=== PATIENT | female | born 1965 | race Caucasian/White ===

== ENCOUNTER 2023-03-16 07:32 | Day surgery (SDC) | payer BC, MEDICAID, SELFPAY ==
[2023-03-16 08:19] VITALS: BP 157/91; PULSE 68; RESP 16; TEMP 36.3; O2SAT 97
[2023-03-16 08:27] LABS: Glucometer 100 mg/dL (74-106)
[2023-03-16 08:51] VITALS: RESP 20
[2023-03-16 08:55] VITALS: BP 161/89; PULSE 74; O2SAT 94
[2023-03-16] MEDS: BUPIVACAINE HCL 0.25% PF 25 MG/10 ML VIAL 4 ML INJ (08:56)
[2023-03-16 08:57] VITALS: BP 155/97; PULSE 78; O2SAT 96
--- NOTE | 2023-03-16 09:45 | W.PM.PROCNOT ---
Date of procedure: 03/16/23 Pre-op diagnosis: neuritis of the right lateral cutaneous branch middle cluneal nerves Post-op diagnosis: same Procedure: Right Lateral cutaneous branch Iliohypogastric nerve injection, diagnostic Performed under fluoroscopic guidance Immediate complications none Anesthesia: none Solution used for injection: In each syringe, 2 milliliters 0.25% Marcaine 2.5 mL is used for injection for each side Time out process compliant After informed consent obtained patient was brought to the procedure room placed in the prone position skin overlying the area was prepped and draped in a sterile fashion using betadine. 25 gauge spinal needle Insert over each of the target areas identified in fluoroscopy corresponding needles were advanced Under fluoroscopic guidance until the target/targets encountered , no indication of intravascular or Intraneuronal needle tip placement. Solution injected. [place] removed post procedurally. patient transferred to recovery room in stable condition to be discharged home after meeting criteria Anesthesia: Local Surgeon: Dony Montelongo
== END 2023-03-16 09:02 | disposition home or self-care (01) ==
PROVIDERS: PCP Family Medicine; Visit Provider Anesthesiology Pain Medicine
DX: G57.81 Other specified mononeuropathies of right lower limb (principal); Z79.84 Long term (current) use of oral hypoglycemic drugs
CPT/HCPCS: 36415; 36416; 64425; 77002; 82948

== ENCOUNTER 2023-04-02 13:08 | Outpatient (OUT) | payer BC, MEDICAID, SELFPAY ==
--- NOTE | 2023-04-02 13:39 | PM.CN ---
Consult Note: HPI Data of Consult Patient: known to practice within the last 3 years Consult date: 04/02/23 Requesting Physician: Ivy Benjamin NP Primary Care Provider: Cali Garcia MD Consult Narrative Narrative: Marimar is here for f/u to right LCIH nerve block done 03/16/23. She received 90% relief of pain and increased fx for several hours after procedure. She would like to proceed with RFA of right LCIH. Procedure discussed in detail and questions answered. No radiculopathy. No new sensorimotor sx or bowel or bladder issues. No foot drop. No adverse medication SE. cc:: CC: Ivy Benjamin NP Review of Systems ROS Status of ROS 10 or more systems reviewed and unremarkable except as noted in history and below Musculoskeletal Reports: back pain PFSH PFSH Medical History Surgical History Meds Home Medications and Allergies Home Medications Medication Instructions Recorded Confirmed Type alprazolam 1 mg tablet 1 mg PO TID PRN anxiety 03/05/23 03/16/23 History baclofen 10 mg tablet 10 mg PO Q12H 03/05/23 03/16/23 History celecoxib 200 mg capsule 200 mg PO BID 03/05/23 03/16/23 History dextroamphetamine-amphetamine 30 30 mg PO DAILY 03/05/23 03/16/23 History mg tablet (Adderall) metformin 500 mg tablet,extended 500 mg PO .EVENING 03/05/23 03/16/23 History release 24 hr trazodone 100 mg tablet 100 mg PO .HS 03/05/23 03/16/23 History Allergies Allergy/AdvReac Type Severity Reaction Status Date / Time Penicillins Allergy Mild Verified 03/16/23 08:13 Exam Constitutional Documenting provider has reviewed patient's vital signs: yes Common normals: no apparent distress, average body habitus, oriented x3, no limitations, healthy appearing, alert and well nourished General appearance: cooperative, comfortable and well developed Orientation/consciousness: Yes awake, Yes oriented to person, Yes oriented to place and Yes oriented to time HENIA Common normals: normocephalic and moist oral mucous membranes Back & Pelvis Lumbar spine/lower back: normal to inspection, lumbar ROM normal, pain with ROM and straight leg raise negative bilaterally Other: positive gaenslens, thigh thrust, adriana right negative facet load pain muscle strength 5/5 bilat LE with intact sensation. Assessment and Plan Assessment and Plan (1) Sacroiliac joint pain: (2) Muscle spasm: Plan schedule for RFA thermal right LCIH under fluoroscopy refill baclofen
== END 2023-04-02 13:09 | disposition home or self-care (01) ==
LOC: PM 13:08
PROVIDERS: PCP Family Medicine; Visit Provider Nurse Practitioner
DX: M62.838 Other muscle spasm (principal); M53.3 Sacrococcygeal disorders, not elsewhere classified
CPT/HCPCS: G0463

== ENCOUNTER 2023-05-11 08:56 | Day surgery (SDC) | payer BC, MEDICAID, SELFPAY ==
[2023-05-11 09:20] VITALS: BP 108/70; PULSE 77; RESP 16; TEMP 36.6; O2SAT 97
[2023-05-11 09:24] LABS: Glucometer 103 mg/dL (74-106)
[2023-05-11] MEDS: 0.9 % SODIUM CHLORIDE 500 ML 50 ML IV (09:34)
[2023-05-11] MEDS: BUPIVACAINE HCL 0.25% PF 25 MG/10 ML VIAL 5 ML INJ (10:05)
[2023-05-11] MEDS: LIDOCAINE HCL 2% 400 MG/20 ML MDV 10 ML INJ (10:05)
[2023-05-11] MEDS: METHYLPREDNISOLONE ACETATE 40 MG/ML VIAL INJ (10:05)
[2023-05-11 10:12] VITALS: BP 110/62; PULSE 72; RESP 16; TEMP 36.6; O2SAT 96
[2023-05-11 10:13] VITALS: BP 118/58; PULSE 75; RESP 16; TEMP 36.6; O2SAT 95
--- NOTE | 2023-05-11 11:01 | W.PM.PROCNOT ---
Date of procedure: 05/11/23 Pre-op diagnosis: Right lateral cutaneous iliohypogastric neuritis Post-op diagnosis: same as pre-op Procedure: Right Lateral cutaneous iliohypogastric nerve Radiofrequency ablation Under fluoroscopic guidance Rhizotomy was created using radio frequency ablation at 80?C for 90 seconds 1 to 2 lesions created at each site. Post lesioning injection of 2 mL each of 0.25% Marcaine and 2% lidocaine with Depo-Medrol 40mg. 0.5 to 1 mL injected at each site IV in place yes If Intravenous fluids: NS at KVO Anesthesia local 2% lidocaine for Anesthesia Other: MAC Timeout process compliant After informed consent obtained. Patient brought to the procedure room placed in the prone position skin overlying the area was prepped and draped in a sterile fashion using betadine. 25 gauge needle was used to create a skin wheal over each of the targeted areas utilizing 2% lidocaine. A rhizotomy needle with a 10 mm active tip was inserted over each of the anesthetized areas and directed towards four different areas in the distribution of the lateral cutaneous branches of the iliohypogastric nerve, accomplished under fluoroscopic guidance. After encountering the same we had positive sensory stimulation, negative motor stimulation was noted. lesions were then created. Post lesioning, steroid solution was injected needles removed. Patient was transferred to recovery room in stable condition to be discharged home after meeting criteria. Anesthesia: MAC Surgeon: Dony Montelongo Condition: stable
--- NOTE | 2023-05-11 13:05 | PC.NURSE ---
Upon discharge, patient released to daughter in car. Patient opened door, then slammed it and proceeded to walk back into hospital stating There i was released to my car, I'll be in the cafeteria . Patient's gait was stable.
== END 2023-05-11 11:37 | disposition home or self-care (01) ==
LOC: SURGOUT 08:57
PROVIDERS: PCP Family Medicine; Visit Provider Anesthesiology Pain Medicine
PROC: (CPT 1992; principal; 2023-05-11 09:50)
DX: G57.81 Other specified mononeuropathies of right lower limb (principal); Z79.84 Long term (current) use of oral hypoglycemic drugs
CPT/HCPCS: 36415; 64640; 77002; 82948; J1030; J2704

== ENCOUNTER 2023-05-19 09:59 | Outpatient (OUT) | payer BC, MEDICAID, SELFPAY ==
[2023-05-19 10:35] LABS: Basophils Absolute Auto 0.1 10^3/uL (0.0-0.1); Basophils Percent Auto 0.6 % (0.2-2.0); Eosinophils Absolute Auto 0.4 10^3/uL (0.0-0.7); Hematocrit 40.8 % (36.0-48.0); Hemoglobin 14.3 g/dL (12.0-16.0); Immature Granulocytes Abs Auto 0.03 10^3/uL (0.00-0.03); Immature Granulocytes Pct Auto 0.4 % (0.0-0.5); Lymphocytes Absolute Auto 2.7 10^3/uL (1.2-3.8); Mean Corpuscular Hemoglobin 30.8 pg (26.7-34.0); Mean Corpuscular Volume 87.9 fL (81.0-99.0); Monocytes Absolute Auto 0.4 10^3/uL (0.3-0.8); Monocytes Percent Auto 5.1 % (1.7-12.0); Neutrophils Absolute Auto 4.5 10^3/uL (1.4-6.5); Neutrophils Percent Auto 55.9 % (43.0-75.0); Platelet Count 264 10^3/uL (150-450); Red Blood Count 4.64 10^6/uL (4.20-5.40); Red Cell Distribution Width 12.9 % (11.0-15.0); White Blood Count 8.1 10^3/uL (4.0-11.0)
[2023-05-19 11:38] LABS: Estimated Average Glucose 126 mg/dL
[2023-05-19 12:11] LABS: Alanine Aminotransferase 31 U/L (14-59); Albumin Globulin Ratio 1.3; Albumin Level 4.4 g/dL (3.4-5.0); Alkaline Phosphatase 105 U/L (46-116); Anion Gap 16.9; Aspartate Amino Transferase 18 U/L (15-37); BUN Creatinine Ratio 18.3; Bilirubin Direct 0.1 mg/dL (0.0-0.2); Bilirubin Total 0.5 mg/dL (0.2-1.0); Carbon Dioxide 25.3 mmol/L (21.0-32.0); Chloride 103 mmol/L (98-107); Cholesterol 216 mg/dL (<=200); Estimated GFR (African America >60 (>=60); Estimated GFR (Non-African Ame >60 (>=60); Globulin 3.3 g/dL; Glucose 78 mg/dL (74-106); HDL Cholesterol 54 mg/dL (40-60); Potassium 4.2 mmol/L (3.5-5.1); Sodium 141 mmol/L (136-145); Thyroid Stimulating Hormone 2.626 uIU/mL (0.358-3.740); Total Protein 7.7 g/dL (6.4-8.2); Triglycerides 245 mg/dL (<=150)
== END 2023-05-19 10:00 | disposition home or self-care (01) ==
LOC: LAB 10:01
PROVIDERS: PCP Family Medicine; Visit Provider Family Medicine
DX: Z00.00 Encounter for general adult medical examination without abnormal findings (principal)
CPT/HCPCS: 36415; 80048; 80061; 80076; 83036; 84443; 85025

== ENCOUNTER 2023-06-03 13:54 | Outpatient (OUT) | payer BC, MEDICAID, SELFPAY ==
--- NOTE | 2023-06-03 14:13 | PM.CN ---
Consult Note: HPI Data of Consult Patient: known to practice within the last 3 years Requesting Physician: Ivy Benjamin NP Primary Care Provider: Cali Garcia MD Consult Narrative Reason for consult: right LCIH RFA f/u Narrative: Marimar wyatt pleasant 58 year old female presents for evaluation of chronic low back and right hip pain. Today rating pain 1/10, at its worst the pain is 10/10. Feels the most recent procedure provided 30% pain relief. Patient would like to discuss additional options cc:: CC: Ivy Benjamin NP Review of Systems ROS Status of ROS 10 or more systems reviewed and unremarkable except as noted in history and below Musculoskeletal Reports: back pain PFSH PFSH Medical History Surgical History Meds Home Medications and Allergies Home Medications Medication Instructions Recorded Confirmed Type alprazolam 1 mg tablet 1 mg PO TID PRN anxiety 03/05/23 03/16/23 History baclofen 10 mg tablet 10 mg PO Q12H 03/05/23 03/16/23 History celecoxib 200 mg capsule 200 mg PO BID 03/05/23 03/16/23 History dextroamphetamine-amphetamine 30 30 mg PO DAILY 03/05/23 03/16/23 History mg tablet (Adderall) metformin 500 mg tablet,extended 500 mg PO .EVENING 03/05/23 03/16/23 History release 24 hr trazodone 100 mg tablet 100 mg PO .HS 03/05/23 03/16/23 History Allergies Allergy/AdvReac Type Severity Reaction Status Date / Time Penicillins Allergy Mild Verified 03/16/23 08:13 Exam Constitutional Documenting provider has reviewed patient's vital signs: yes Common normals: no apparent distress, oriented x3, healthy appearing, alert and well nourished General appearance: cooperative HENMT Common normals: normocephalic, hearing grossly normal bilaterally and moist oral mucous membranes Head and scalp: normocephalic Eye Common normals: PERRL Pupil: PERRL Neck & C-Spine Common normals: full ROM General: normal visual inspection Chest Common normals: inspection of chest normal Respiratory Common normals: normal respiratory effort, no retractions and no use of accessory muscles Back & Pelvis Lumbar spine/lower back: ROM limited, pain with ROM and straight leg raise negative bilaterally Sacroiliac joints: SI joint(s) abnormal Other: facet loading on right side predominately axial low back pain without radiculopathy continue to have pain into buttocks and across LCIH nerve Back image (female): 1. 2. Extremity Common normals: normal to inspection and full ROM Neuro Common normals: oriented x3, CN's II-XII intact bilaterally, moves all extremities, no focal motor deficits, no sensory deficits noted and deep tendon reflexes 2+ bilaterally Sensorium/orientation: alert Motor exam: strength 5/5 throughout and no movement abnormalities noted Psych Common normals: mental status grossly normal, thought process normal, cooperative, affect normal, speech normal and activity/motor behavior normal Speech: normal speech Thought process: normal thought process Results Additional Findings Additional findings: I have checked an [place] report on this patient today and there are no aberrancies noted in the prescribing history.?? A drug screen was completed and reviewed within the last year, and if there has not been a drug screen completed we ordered one today to monitor higher risk, state monitored pain medication use. As part of providing excellent, safe, comprehensive care, the following was completed at our patient's visit: 1. A medication reconciliation and review to ensure accurate knowledge of current/active medications, including asking our patients to inform us about any [id number] medications or herbal remedies/nutritional supplements/alternative remedies. 2. A review to specifically ensure our patients have had annual screening for: elevated body mass index (BMI), tobacco use, screening for depression, and screening for unhealthy alcohol use. When screening is concerning, patients are provided with education and the specific recommendation to discuss the concerning health issue and treatment options with their primary care provider. Assessment and Plan Assessment and Plan (1) Lumbar spondylosis: Assessment and Plan: The patient has had over 3 months of moderate to severe right sided low back and buttock pain with functional impairment and inadequate response to conservative care including NSAIDS (unless there are contraindication such as concurrent blood thinners), multiple oral or topical pain medications, and home exercise program/physical therapy.? I have reviewed the imaging of the lumbar spine and no red flags were identified.? The imaging reveals radiographic findings consistent with lumbar spondylosis We discussed the risks and benefits of the procedure with the patient, and we are NOT planning on using sedation as outlined in the guidelines from Medicare unless there is a documented reason that sedation would be strongly recommended.?? ?The procedure will be completed with fluoroscopic guidance.? (2) Muscle spasm: (3) Diabetes: Plan right l4/5 l5/s1 mbbx2 under fluoroscopy working towards thermal RFA continue current medications f/u after injection
== END 2023-06-03 13:55 | disposition home or self-care (01) ==
LOC: PM 13:55
PROVIDERS: PCP Family Medicine; Visit Provider Nurse Practitioner
DX: M47.816 Spondylosis without myelopathy or radiculopathy, lumbar region (principal); M62.838 Other muscle spasm; E11.9 Type 2 diabetes mellitus without complications
CPT/HCPCS: G0463

== ENCOUNTER 2023-07-13 08:08 | Day surgery (SDC) | payer BC, MEDICAID, SELFPAY ==
[2023-07-13 08:47] VITALS: BP 127/77; PULSE 88; RESP 14; TEMP 36.3; O2SAT 95
[2023-07-13 08:54] LABS: Glucometer 189 mg/dL (74-106)
[2023-07-13 09:32] VITALS: BP 119/62; PULSE 76; RESP 18; O2SAT 97
[2023-07-13] MEDS: BUPIVACAINE HCL 0.25% PF 25 MG/10 ML VIAL 4 ML INJ (09:32)
[2023-07-13 09:36] VITALS: BP 131/67; PULSE 85; RESP 18; O2SAT 97
--- NOTE | 2023-07-13 09:44 | W.PM.PROCNOT ---
Date of procedure: 07/13/23 Pre-op diagnosis: Lumbar spondylosis Post-op diagnosis: same as pre-op Procedure: Right Lumbar 4/5, 5/sacral 1 medial branch block Under fluoroscopic guidance Solution injected: 2millilitersMarcaine 0.25% Anesthesia :none Immediate complications none Time out process compliant After informed consent obtained from the patient placed in the Prone proposition . area was prepped and draped in a sterile fashion using Cloraprep .25 gauge spinal needle inserted over each of the above mentioned target areas . [place] were directed towards the target under fluoroscopic guidance . after encountering each of the targets , no indication of intravascular intraneuronal or intrathecal needle tip placement. Then 0 .5 to 1 Milliliter was injected at each level. [place] removed postoperatively. patient transferred to recovery in stable condition to be discharged home after meeting criteria Anesthesia: Local Surgeon: Dony Montelongo Condition: stable
== END 2023-07-13 09:43 | disposition home or self-care (01) ==
LOC: SURGOUT 08:08
PROVIDERS: PCP Family Medicine; Visit Provider Anesthesiology Pain Medicine
DX: M47.816 Spondylosis without myelopathy or radiculopathy, lumbar region (principal); Z79.84 Long term (current) use of oral hypoglycemic drugs
CPT/HCPCS: 36415; 64493; 64494; 82948

== ENCOUNTER 2023-07-21 13:44 | Outpatient (OUT) | payer BC, MEDICAID, SELFPAY ==
--- NOTE | 2023-07-21 14:01 | P.CN_ITS ---
Consult Note: HPI Data of Consult Patient: known to practice within the last 3 years Requesting Physician: Ivy Benjamin NP Primary Care Provider: Cali Garcia MD Consult Narrative Reason for consult: f/u Narrative: Marimar Kendrick a pleasant 58 year old female presents for evaluation and management of right low back pain. Today rating pain 3-4/10 without radiculopathy. Pain is worse with activity, bending, twisting. Relieved with medicaiton and rest. [place] 22% with moderate to severe pain, pain with lifting heavy weights, pain that prevents her from sitting more than 1 hour, pain that impacts sleep. Patient had 100% pain relief and functional improvement immediately after right L4-5 L5-S1 MBB #1. cc:: CC: Ivy Benjamin NP Review of Systems ROS Status of ROS 10 or more systems reviewed and unremarkable except as noted in history and below Musculoskeletal Reports: back pain PFSH PFSH Medical History Anxiety ?F41.9 - Anxiety disorder, unspecified (ICD-10) CHF (congestive heart failure) ?I50.9 - Heart failure, unspecified (ICD-10) 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.9 - Congenital malformation of heart, unspecified (ICD-10) Ectopic ?O00.90 - Unspecified ectopic without intrauterine (ICD- 10) Hearing deficit ?H91.90 - Unspecified hearing loss, unspecified ear (ICD-10) Hypertension ?I10 - Essential (primary) hypertension (ICD-10) Loud snoring ?R06.83 - Snoring (ICD-10) Low back pain ?M54.50 - Low back pain, unspecified (ICD-10) Myocardial infarct ?I21.9 - Acute myocardial infarction, unspecified (ICD-10) Osteoarthritis ?M19.90 - Unspecified osteoarthritis, unspecified site (ICD-10) Sleep apnea ?G47.30 - Sleep apnea, unspecified (ICD-10) Smoker ?F17.200 - Nicotine dependence, unspecified, uncomplicated (ICD-10) Surgical History H/O carpal tunnel repair ?Z98.890 - Other specified postprocedural states (ICD-10) H/O foot surgery ?Z98.890 - Other specified postprocedural states (ICD-10) H/O wrist surgery ?Z98.890 - Other specified postprocedural states (ICD-10) H/O: hysterectomy ?Z90.710 - Acquired absence of both cervix and uterus (ICD-10) History of appendectomy ?Z90.49 - Acquired absence of other specified parts of digestive tract (ICD- 10) History of cholecystectomy ?Z90.49 - Acquired absence of other specified parts of digestive tract (ICD- 10) History of tonsillectomy and adenoidectomy ?Z90.89 - Acquired absence of other organs (ICD-10) Hx of breast reduction, elective ?Z98.890 - Other specified postprocedural states (ICD-10) S/P arthroscopic knee surgery ?Z98.890 - Other specified postprocedural states (ICD-10) S/P trigger finger release ?Z98.890 - Other specified postprocedural states (ICD-10) Meds Home Medications and Allergies Home Medications Medication Instructions Recorded Confirmed Type alprazolam 1 mg tablet 1 mg PO TID PRN anxiety 03/05/23 07/13/23 History baclofen 10 mg tablet 10 mg PO Q12H 03/05/23 07/13/23 History celecoxib 200 mg capsule 200 mg PO BID 03/05/23 07/13/23 History dextroamphetamine-amphetamine 30 30 mg PO DAILY 03/05/23 07/13/23 History mg tablet (Adderall) metformin 500 mg tablet,extended 500 mg PO .EVENING 03/05/23 07/13/23 History release 24 hr trazodone 100 mg tablet 100 mg PO .HS 03/05/23 07/13/23 History Allergies Allergy/AdvReac Type Severity Reaction Status Date / Time Penicillins Allergy Mild Verified 07/13/23 08:45 Exam Constitutional Documenting provider has reviewed patient's vital signs: yes Common normals: no apparent distress, oriented x3, healthy appearing, alert and well nourished General appearance: cooperative HENMT Common normals: normocephalic, hearing grossly normal bilaterally and moist oral mucous membranes Head and scalp: normocephalic Eye Common normals: PERRL Pupil: PERRL Neck & C-Spine Common normals: full ROM General: normal visual inspection Chest Common normals: inspection of chest normal Respiratory Common normals: normal respiratory effort, no retractions and no use of accessory muscles Back & Pelvis Lumbar spine/lower back: ROM limited, pain with ROM and straight leg raise negative bilaterally Other: facet loading on right side predominately axial low back pain without radiculopathy Extremity Common normals: normal to inspection and full ROM Neuro Common normals: oriented x3, CN's II-XII intact bilaterally, moves all extremities, no focal motor deficits, no sensory deficits noted and deep tendon reflexes 2+ bilaterally Sensorium/orientation: alert Motor exam: strength 5/5 throughout and no movement abnormalities noted Psych Common normals: mental status grossly normal, thought process normal, cooperative, affect normal, speech normal and activity/motor behavior normal Speech: normal speech Thought process: normal thought process Assessment and Plan Assessment and Plan (1) Lumbar spondylosis: Assessment and Plan: The patient has had over 3 months of moderate to severe right sided low back and buttock pain with functional impairment and inadequate response to conservative care including NSAIDS (unless there are contraindication such as concurrent blood thinners), multiple oral or topical pain medications, and home exercise program/physical therapy.? I have reviewed the imaging of the lumbar spine and no red flags were identified.? The imaging reveals radiographic findings consistent with lumbar spondylosis We discussed the risks and benefits of the procedure with the patient, and we are NOT planning on using sedation as outlined in the guidelines from Medicare unless there is a documented reason that sedation would be strongly recommended.?? The procedure will be completed with fluoroscopic guidance.? (2) Muscle spasm: (3) Chronic prescription benzodiazepine use: Plan proceed with right L4-5 L5-S1 MBB #2 with 10mg PO valium 30 mins prior to procedure due to anxiety. continue current medications f/u 1 week after MBB
== END 2023-07-21 13:45 | disposition home or self-care (01) ==
LOC: PM 13:45
PROVIDERS: PCP Family Medicine; Visit Provider Nurse Practitioner
DX: M47.816 Spondylosis without myelopathy or radiculopathy, lumbar region (principal); M62.838 Other muscle spasm; Z79.891 Long term (current) use of opiate analgesic
CPT/HCPCS: G0463

== ENCOUNTER 2023-08-10 06:26 | Day surgery (SDC) | payer BC, MEDICAID, SELFPAY ==
[2023-08-10 07:55] LABS: Glucometer 151 mg/dL (74-106)
[2023-08-10 08:00] VITALS: BP 142/80; PULSE 83; RESP 16; TEMP 36.5; O2SAT 98
[2023-08-10] MEDS: BUPIVACAINE HCL 0.25% PF 25 MG/10 ML VIAL 3 ML INJ (09:19)
[2023-08-10 09:20] VITALS: BP 150/62; PULSE 62; RESP 18; O2SAT 98
[2023-08-10 09:22] VITALS: BP 170/71; PULSE 65; RESP 18; O2SAT 98
--- NOTE | 2023-08-10 09:28 | P.ON_ITS ---
Date of procedure: 08/10/23 Pre-op diagnosis: Lumbar spondylosis Post-op diagnosis: same as pre-op Procedure: Right Lumbar 4/5, 5/sacral 1medial branch block Under fluoroscopic guidance Solution injected: 2millilitersMarcaine 0.25% Anesthesia :none Immediate complications none Time out process compliant After informed consent obtained from the patient placed in the Prone proposition . area was prepped and draped in a sterile fashion using Cloraprep .25 gauge spinal needle inserted over each of the above mentioned target areas . [place] were directed towards the target under fluoroscopic guidance . after encountering each of the targets , no indication of intravascular intraneuronal or intrathecal needle tip placement. Then 0 .5 to 1 Milliliter was injected at each level. [place] removed postoperatively. patient transferred to recovery in stable condition to be discharged home after meeting criteria Anesthesia: Local Surgeon: Dony Montelongo Condition: stable
== END 2023-08-10 09:30 | disposition home or self-care (01) ==
PROVIDERS: PCP Family Medicine; Visit Provider Anesthesiology Pain Medicine
DX: M47.816 Spondylosis without myelopathy or radiculopathy, lumbar region (principal); Z79.84 Long term (current) use of oral hypoglycemic drugs
CPT/HCPCS: 36415; 64493; 64494; 82948

== ENCOUNTER 2023-08-19 14:06 | Outpatient (OUT) | payer BC, MEDICAID, SELFPAY ==
--- NOTE | 2023-08-19 14:14 | P.CN_ITS ---
Consult Note: HPI Data of Consult Patient: known to practice within the last 3 years Requesting Physician: Ivy Benjamin NP Primary Care Provider: Cali Garcia MD Consult Narrative Reason for consult: f/u Narrative: Marimar Kendrick a pleasant 58 year old female presents for evaluation and management of right low back pain. Today rating pain 8-9/10 without radiculopathy. Pain is worse with activity, bending, twisting. Relieved with medication and rest. KYARA 28% with moderate to severe pain, pain with lifting heavy weights, pain that prevents her from sitting more than 1 hour, pain that impacts sleep. Patient had 100% pain relief and functional improvement immediately after right L4-5 L5-S1 MBB #2 cc:: CC: Ivy Benjamin NP Review of Systems ROS Status of ROS 10 or more systems reviewed and unremark able except as noted in history and below Musculoskeletal Reports: back pain PFSH PFSH Medical History Ectopic ?O00.90 - Unspecified ectopic without intrauterine (ICD- 10) Hearing deficit ?H91.90 - Unspecified hearing loss, unspecified ear (ICD-10) Low back pain ?M54.50 - Low back pain, unspecified (ICD-10) Osteoarthritis ?M19.90 - Unspecified osteoarthritis, unspecified site (ICD-10) Anxiety ?F41.9 - Anxiety disorder, unspecified (ICD-10) Loud snoring ?R06.83 - Snoring (ICD-10) Sleep apnea ?G47.30 - Sleep apnea, unspecified (ICD-10) Hypertension ?I10 - Essential (primary) hypertension (ICD-10) 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.9 - Congenital malformation of heart, unspecified (ICD-10) Smoker ?F17.200 - Nicotine dependence, unspecified, uncomplicated (ICD-10) CHF (congestive heart failure) ?I50.9 - Heart failure, unspecified (ICD-10) Myocardial infarct ?I21.9 - Acute myocardial infarction, unspecified (ICD-10) Surgical History S/P arthroscopic knee surgery ?Z98.890 - Other specified postprocedural states (ICD-10) Hx of breast reduction, elective ?Z98.890 - Other specified postprocedural states (ICD-10) S/P trigger finger release ?Z98.890 - Other specified postprocedural states (ICD-10) H/O wrist surgery ?Z98.890 - Other specified postprocedural states (ICD-10) H/O carpal tunnel repair ?Z98.890 - Other specified postprocedural states (ICD-10) H/O foot surgery ?Z98.890 - Other specified postprocedural states (ICD-10) History of cholecystectomy ?Z90.49 - Acquired absence of other specified parts of digestive tract (ICD- 10) H/O: hysterectomy ?Z90.710 - Acquired absence of both cervix and uterus (ICD-10) History of appendectomy ?Z90.49 - Acquired absence of other specified parts of digestive tract (ICD- 10) History of tonsillectomy and adenoidectomy ?Z90.89 - Acquired absence of other organs (ICD-10) Meds Home Medications and Allergies Home Medications Medication Instructions Recorded Confirmed Type alprazolam 1 mg tablet 1 mg PO TID PRN anxiety 03/05/23 08/10/23 History baclofen 10 mg tablet 10 mg PO Q12H 03/05/23 08/10/23 History celecoxib 200 mg capsule 200 mg PO BID 03/05/23 08/10/23 History dextroamphetamine-amphetamine 30 30 mg PO DAILY 03/05/23 08/10/23 History mg tablet (Adderall) metformin 500 mg tablet,extended 500 mg PO .EVENING 03/05/23 08/10/23 History release 24 hr trazodone 100 mg tablet 100 mg PO .HS 03/05/23 08/10/23 History diazepam 10 mg tablet (Valium) 10 mg PO BID 08/10/23 08/10/23 History Allergies Allergy/AdvReac Type Severity Reaction Status Date / Time Penicillins Allergy Mild Verified 07/13/23 08:45 Exam Constitutional Documenting provider has reviewed patient's vital signs: yes Common normals: no apparent distress, oriented x3, healthy appearing, alert and well nourished General appearance: cooperative HENAR Common normals: normocephalic, hearing grossly normal bilaterally and moist oral mucous membranes Head and scalp: normocephalic Eye Common normals: PERRL Pupil: PERRL Neck & C-Spine Common normals: full ROM General: normal visual inspection Chest Common normals: inspection of chest normal Respiratory Common normals: normal respiratory effort, no retractions and no use of accessory muscles Back & Pelvis Lumbar spine/lower back: ROM limited, pain with ROM and straight leg raise negative bilaterally Other: facet loading on right side predominately axial low back pain without radiculopathy Extremity Common normals: normal to inspection and full ROM Neuro Common normals: oriented x3, CN's II-XII intact bilaterally, moves all extremities, no focal motor deficits, no sensory deficits noted and deep tendon reflexes 2+ bilaterally Sensorium/orientation: alert Motor exam: strength 5/5 throughout and no movement abnormalities noted Psych Common normals: mental status grossly normal, thought process normal, cooperative, affect normal, speech normal and activity/motor behavior normal Speech: normal speech Thought process: normal thought process Assessment and Plan Assessment and Plan (1) Lumbar spondylosis: Assessment and Plan: The patient has had over 3 months of moderate to severe right sided low back and buttock pain with functional impairment and inadequate response to conservative care including NSAIDS (unless there are contraindication such as concurrent blood thinners), multiple oral or topical pain medications, and home exercise program/physical therapy.? I have reviewed the imaging of the lumbar spine and no red flags were id entified.? The imaging reveals radiographic findings consistent with lumbar spondylosis We discussed the risks and benefits of the procedure with the patient. The procedure will be completed with fluoroscopic guidance.? (2) Muscle spasm: (3) Chronic prescription benzodiazepine use: Plan proceed with right L4-5 L5-S1 RFA with IV sedation due to anxiety. continue current medications f/u 1 month after thermal RFA
== END 2023-08-19 14:07 | disposition home or self-care (01) ==
LOC: PM 14:07
PROVIDERS: PCP Family Medicine; Visit Provider Nurse Practitioner
DX: M47.816 Spondylosis without myelopathy or radiculopathy, lumbar region (principal); M62.838 Other muscle spasm; Z79.891 Long term (current) use of opiate analgesic
CPT/HCPCS: G0463

== ENCOUNTER 2023-09-14 10:27 | Day surgery (SDC) | payer BC, MEDICAID, SELFPAY ==
--- OUTSIDE RECORDS SUMMARY | 2023-09-14 10:33 | XMS_ITS | CCD ---
Author Name Unknown Address [address] [place] [address] Organization [facility] Care Team Providers Care Baggage Smasher Name Role Phone GISSELL, ABDULAZIM Unavailable Unavailable GISSELL, ABDULAZIM Unavailable Unavailable CALI MENDEZ Unavailable Unavailable SELF, REFERRED Unavailable Unavailable [place] Unavailable Unavailable GISSELL, ABDULAZIM Unavailable Unavailable [place] Unavailable Unavailable DEVAUGHNLANDRYI Unavailable Unavailable NADEREAntonio, DR CALI Leon Attending Unavailable NADKINJAL, DR CALI Leon Consulting Unavailable NADKINJAL, DR CALI Leon Primary Care Unavailable NADEREAntonio, DR CALI Leon Admitting Unavailable LAKSHMIPATHY ., NARENDRANFERNANDA Attending Yumiko vailable LAKSHMIPATHY ., NARENDWILLIE Consulting Yumiko vailable LAKSHMIPATHY ., NARENDWILLIE Admitting Yumiko vailable NADEREAntonio, DR CALI Leon Primary Care Unavailable KARASIK ., DR VILLEGAS Admitting Unavailabl e KARASIK ., DR VILLEGAS Attending Unavailabl e KARASIK ., DR VILLEGAS Consulting Unavailabl e NADERER, DR CALI Leon Primary Care Unavailable SHERICE, CHAVEZ H Admitting Unavailable ZIMORENA, DR GABRIELA Alvarez Consulting Unavailable SHERICE, H Attending Unavailable NADKINJAL, DR CALI Leon Primary Care Unavailable SHERICE, H Consulting Unavailable ANDREA, DR CALI Leon Admitting Unavailable DINORAH, DR GABRIELA Alvarez Consulting Unavailable ANDREA, DR CALI Leon Attending Unavailable NADERER, DR CALI Leon Primary Care Unavailable NADEREAntonio, DR CALI Leon Consulting Unavailable CALI MENDEZ Attending Unavailable Allergies Allergy Classification Reported Allergen(s) Allergy Type Date of Onset Reaction(s) Facility (2 sources) penicillin Drug Allergy 04-27-2017 [facility] Repository Problems Active Problems Problem Classification Problem Date Documented Date Episodic/Chronic Chronic obstructive pulmonary disease and bronchiectasis (1 source) Chronic obstructive pulmonary disease, unspecified; Translations: [CHRONIC OBSTRUCTIVE PULMONARY DISEASE, UNSPECIFIED] Onset: 05-04-2017 Chronic Esophageal disorders (1 source) Gastro-esophageal reflux disease without esophagitis; Translations: [GASTRO-ESOPHAGEAL REFLUX DISEASE WITHOUT ESOPHAGITIS] Onset: 05-04-2017 Chronic Essential hypertension (1 source) Essential (primary) hypertension; Translations: [ESSENTIAL (PRIMARY) HYPERTENSION] Onset: 05-04-2017 Chronic Immunizations and screening for infectious disease (1 source) Encounter for screening for human papillomavirus (HPV); Translations: [ENC SCREENING HUMAN PAPILLOMAVIRUS] Onset: 11-28-2022 Episodic Nutritional deficiencies (1 source) Vitamin D deficiency, unspecified; Translations: [VITAMIN D DEFICIENCY UNSPECIFIED] Onset: 06-18-2022 Chronic Other connective tissue disease (1 source) Other muscle spasm; Translations: [OTHER MUSCLE SPASM] Onset: 02-03-2023 Episodic Other nervous system disorders (4 sources) Other chronic pain; Translations: [OTHER CHRONIC PAIN] Onset: 02-02-2023 Chronic Other nervous system disorders (1 source) Other specified mononeuropathies; Translations: [OTHER SPECIFIED MONONEUROPATHIES] Onset: 02-03-2023 Chronic Other screening for suspected conditions (not mental disorders or infectious disease) (4 sources) Encounter for screening for malignant neoplasm of cervix; Translations: [ENC SCREENING MALIG NEOPLASM CERV] Onset: 11-23-2022 Episodic Substance-related disorders (1 source) Nicotine dependence, cigarettes, uncomplicated; Translations: [NICOTINE DEPENDENCE, CIGARETTES, UNCOMPLICATED] Onset: 05-04-2017 Chronic Unclassified (1 source) Sleep apnea, unspecified; Translations: [SLEEP APNEA, UNSPECIFIED] Onset: 05-04-2017 Unclassified (2 sources) Unknown / UNK(Unknown) Onset: 05-04-2017 Unclassified (1 source) Pure hypercholesterolemia, unspecified; Translations: [PURE HYPERCHOLESTEROLEMIA, UNSPECIFIED] Onset: 05-04-2017 Past or Other Problems Problem Classification Problem Date Documented Da te Episodic/Chronic Other connective tissue disease (1 source) Other synovitis and tenosynovitis, other site; Translations: [OTHER SYNOVITIS AND TENOSYNOVITIS, OTHER SITE] Onset: 05-04-2017 Episodic Spondylosis; intervertebral disc disorders; other back problems (8 sources) Radiculopathy, lumbar region; Translations: [Lumbago with sciatica, right side] Onset: 07-28-2022 Episodic Sprains and strains (4 sources) Other specified sprain of left wrist, initial encounter; Translations: [OTHER SPECIFIED SPRAIN OF LEFT WRIST, INITIAL ENCOUNTER] Onset: 05-04-2017 Episodic Results Test Name Value Interpretation Reference Range Facility PAP ACOG PANEL 2: 30 to 65on 12-01-2022 . . Normal [facility] Comment on above: Result Comment: Perf ormed at: WB Performed By: #### [id number] ####[facility] [address] [place] [address]Dr. Lloyd Jaeger Age Gdln ACOG Testing 30-65 [facility] Comment on above: Performed By: #### [id number] ####[facility] [address] [place] [address]Dr. Lloyd Jaeger DIAGNOSIS: Comment Normal [facility] Comment on above: Result Comment: NEGA TIVE FOR INTRAEPITHELIAL LESION OR MALIGNANCY. Performed at: WB Performed By: #### 4 [id number] ####[facility] [address] [place] [address]Dr. Lloyd Jaeger HPV Aptima Negative Normal Negative [facility] Comment on above: Result Comment: This nucleic acid amplification test detects fourteen high-risk HPV types (16,18,31,33,35,39,45,51,52,56,58,59,66,68) without differentiation. Performed at: =G Performed By: #### 4 [id number] ####[facility] [address] [place] [address]Dr. Lloyd Jaeger HPV Genotype Reflex Comment Normal [facility] Comment on above: Result Comment: Crit eria not met, HPV Genotype not performed. Performed at: WB Performed By: #### [id number] ####[facility] [address] [place] [address]Dr. Lloyd Jaeger Methodology: Comment Normal [facility] Comment on above: Result Comment: This liquid based ThinPrep(R) pap test was screened with the use of an image guided system. Performed at: WB Performed By: #### 4 [id number] ####[facility] [address] [place] [address]Dr. Lloyd Jaeger Note: Comment Normal [facility] Comment on above: Result Comment: The Pap smear is a screening test designed to aid in the detection of premalignant and malignant conditions of the uterine cervix. It is not a diagnostic procedure and should not be used as the sole means of detecting cervical cancer. Both false-positive and false-negative reports do occur. . Performed at: WB Performed By: #### 4 [id number] ####[facility] [address] [place] [id number]. Lloyd Jaeger Performed by: Comment Normal [facility] Comment on above: Result Comment: Bhavana Sanchez, Supervisory Hand Fabric Cutter (ASCP) Performed at: WB Performed By: #### 4 [id number] ####[facility] [address] [place], [place] [address]Dr. Lloyd Jaeger Specimen adequacy: Comment Normal [facility] Comment on above: Result Comment: Sati sfactory for evaluation. No endocervical component is identified. Performed at: WB Performed By: #### 4 [id number] ####[facility] [address] [place], [place] [address]Dr. Lloyd Jaeger MRI LSPINE WO CONon 09-17-19 MRI [facility] WO CON EXAMINATION: [place] CON HISTORY: Lumbar radiculopathy ; lumbar pain radiating into right leg; no known injury COMPARISON: No relevant comparison available. TECHNIQUE: A variety of imaging planes and parameters were utilized for visualization of suspected pathology. FINDINGS: For the purposes of numbering, sagittal T2 image # 8 extends from the T11 vertebral body superiorly to the S3 level inferiorly. PARASPINAL AREA: Normal with no visible mass. BONES: Several heterogeneous marrow signal throughout the osseous structures. No fracture, pars defect, or osseous lesion. CORD/CAUDA EQUINA: Normal caliber, contour, and signal intensity. DISC LEVELS: 12-L1: No significant disc/facet abnormality, spinal stenosis, or foraminal stenosis. L1-L2: No significant disc/facet abnormality, spinal stenosis, or foraminal stenosis. L2-L3: No significant disc/facet abnormality, spinal stenosis, or foraminal stenosis. L3-L4: No significant disc/facet abnormality, spinal stenosis, or foraminal stenosis. L4-L5: Early degenerative disc disease is present without focal protrusion or neural impingement. L5-S1: Mild foramen narrowing bilaterally without significant central canal narrowing. Mild diffuse disc bulging and mild disc at reduction. Mild degenerative facet arthropathy. IMPRESSION: 1. Mild degenerative changes of lower lumbar spine. No significant central canal or foramen narrowing to account for patient's symptoms. Electronically authenticated by: GABRIELA COPELAND Date: 2022-09-17 17:24 Normal [facility] XR LSPINE 2_3 VIEWSon 2021 XR LSPINE 2_3 VIEWS EXAMINATION: XR LSPI NE 2_3 VIEWS HISTORY: Lumbago co-occurrent with right-side sciatica ; chronic back pain; no known injury COMPARISON: CT abdomen pelvis 07/14/2021 FINDINGS: BONES: Sclerosis surrounding prominent Schmorl's node projecting into superior endplate of L4, unchanged and of doubtful clinical significance. No fracture spondylolisthesis. Mild degenerative facet arthropathy L4-L5, L5-S1.. DISC SPACES: Mild narrowing L4-L5, L5-S1. PARASPINOUS: Negative. No paraspinous abnormality is seen. OTHER: Negative. IMPRESSION: 1. Grossly stable mild degenerative changes of lower lumbar spine. Electronically authenticated by: GABRIELA COPELAND Date: 2022-07-29 09:13 Normal [facility] CBC AUTO DIFFon 06-15-2022 BASO # 0.1 103/ul Normal 0.0-0.1 [facility] Comment on above: Performed By: #### C BC ####[facility] [address] [place], [place] [address]Oi. Lloyd Jaeger Basophils/100 WBC (Bld) 0.6 % Normal 0.2-2.0 [facility] Comment on above: Performed By: #### C BC ####[facility] [address] [place], [place] [address]Jo. Lloyd Jaeger EO # 0.4 103/ul Normal 0.0-0.7 [facility] Comment on above: Performed By: #### C BC ####[facility] [address] [place] [id number]. Lloyd Jaeger Eosinophils/100 WBC (Bld) 4.8 % Normal 0.9-7.0 [facility] Comment on above: Performed By: #### C BC ####[facility] [address] [place] [address]Dr. Lloyd Jaeger Erythrocyte distribution width (RBC) [Ratio] 12.7 % Normal 11.0-15.0 [facility] Comment on above: Performed By: #### C BC ####[facility] [address] [place], [place] [address]Dr. Lloyd Jaeger Hematocrit (Bld) [Volume fraction] 38.5 % Normal 36.0-48.0 [facility] Comment on above: Performed By: #### C BC ####[facility] [address] [place], [place] [address]Dr. Lloyd Jaeger Hemoglobin (Bld) [Mass/Vol] 12.8 g/dL Normal 12.0-16.0 [facility] Comment on above: Performed By: #### C BC ####[facility] [address] [place] [address]Dr. Lloyd Jaeger IG # 0.02 10e3/ul Normal 0.00-0.03 [facility] Comment on above: Performed By: #### C BC ####[facility] [address] [place], [place] [address]Dr. Lloyd Jaeger IG % 0.3 % Normal 0.0-0.5 [facility] Comment on above: Performed By: #### C BC ####[facility] [address] [place], [place] [address]Dr. Lloyd Jaeger LYMPH # 2.5 103/ul Normal 1.2-3.8 [facility] Comment on above: Performed By: #### C BC ####[facility] [address] [place], [place] [address]Dr. Lloyd Jaeger Lymphocytes/100 WBC (Bld) 31.0 % Normal 20.5-60.0 [facility] Comment on above: Performed By: #### C BC ####[facility] [address] [place] [id number]. Lloyd Jaeger MANUAL DIFF REQ NO Normal [facility] Comment on above: Performed By: #### C BC ####[facility] [address] [place] [id number]. Lloyd Jaeger MCH (RBC) [Entitic mass] 30.6 pg Normal 26.7-34.0 [facility] Comment on above: Performed By: #### C BC ####[facility] [address] [place] [address]Dr. Lloyd Jaeger MCHC (RBC) [Mass/Vol] 33.2 g/dL Normal 29.9-35.2 [facility] Comment on above: Performed By: #### C BC ####[facility] [address] [place] [address]Dr. Lloyd Mil MCV (RBC) [Entitic vol] 92.1 fL Normal 81.0-99.0 [facility] Comment on above: Performed By: #### C BC ####[facility] [address] [place] [address]Dr. Lloyd Mil MONO # 0.4 103/ul Normal 0.3-0.8 [facility] Comment on above: Performed By: #### C BC ####[facility] [address] [place] [address]Dr. Micaelacolin Jaeger Monocytes/100 WBC (Bld) 5.5 % Normal 1.7-12.0 [facility] Comment on above: Performed By: #### C BC ####[facility] [address] [place] [id number]. Lloyd Jaeger NEUT # 4.6 103/ul Normal 1.4-6.5 [facility] Comment on above: Performed By: #### C BC ####[facility] [address] [place] [address]Dr. Micaelacolin Jaeger Neutrophils/100 WBC (Bld) 57.8 % Normal 43.0-75.0 [facility] Comment on above: Performed By: #### C BC ####[facility] [address] [place] [id number]. Micaelacolin Mil Platelet mean volume (Bld) [Entitic vol] 10.6 fL Normal 9.5-13.5 [facility] Comment on above: Performed By: #### C BC ####[facility] [address] [place], [place] [address]Fd. Micaelacolin Jaeger PLT 233 103/ul Normal 150-450 [facility] Comment on above: Performed By: #### C BC ####[facility] [address] [place] [id number]. Lloyd Jaeger RBC 4.18 106/ul Critically low 4.20-5.[address] [facility] Comment on above: Performed By: #### C BC ####[facility] [address] [place] [id number]. Lloyd Jaeger WBC 8.0 103/ul Normal 4.0-11.0 [facility] Comment on above: Performed By: #### C BC ####[facility] [address] [place] [id number] Maria Jaeger FERRITINon 06-15-2022 Ferritin [Mass/Vol] 160.0 ng/mL Normal 8.0-252.0 [facility] Comment on above: Performed By: #### F ERR, VITAD, IRON #### [facility] [address] [place], [place] [address] Dr. Lloyd Jaeger GLYCOHEMOGLOBIN A1Con 2021 ADA RECOMMENDATION SEE BELOW Normal [facility] Comment on above: Result Comment: ADA RECOMMENDED LIMIT 4.0 - 6.0 ADA THERAPEUTIC TARGET < 7.0 ACTION SUGGESTED > 7.0 Performed By: #### A 1C ####[facility] [address] [place] [id number] Maria Jaeger Glucose [Mass/Vol] 117 mg/dL Normal [facility] Comment on above: Performed By: #### A 1C ####[facility] [address] [place] [id number] Maria Jaeger HbA1c (Bld) [Mass fraction] 5.7 % Normal 4.5-6.2 [facility] Comment on above: Performed By: #### A 1C ####[facility] [address] [place], [place] [address]PqDr. Lloyd Jaeger IRONon 06-15-2022 Iron [Mass/Vol] 70.0 ug/dL Normal 50.0-170.0 [facility] Comment on above: Performed By: #### F ERR, VITAD, IRON #### [facility] [address] [place] [id number] [address] Lloyd Jaeger LIPID PROFILEon 06-15-2022 CHOL-HDL RATIO NORM SEE BELOW Normal [facility] Comment on above: Result Comment: 3.3 - 4.4 LOW RISK 4.4 - 7.1 AVERAGE RISK 7.1 - 11.0 MODERATE RISK >11.0 HIGH RISK Performed By: #### B MP, LIPID, LIVER, TSH #### [facility] [address] [place] [address] [address] Lloyd Jaeger Cholesterol [Mass/Vol] 207 mg/dL Critically high <=200 [facility] Comment on above: Performed By: #### B MP, LIPID, LIVER, TSH #### [facility] [address] [place] [address] [address] Lloyd Jaeger Cholesterol in HDL [Mass/Vol] 52 mg/dL Normal 40-60 [facility] Comment on above: Performed By: #### B MP, LIPID, LIVER, TSH #### [facility] [address] [place] [address] [address] Lloyd Jaeger Cholesterol in LDL [Mass/Vol] 126.6 mg/dL Normal [facility] Comment on above: Performed By: #### B MP, LIPID, LIVER, TSH #### [facility] [address] [place] [address] [address] Lloyd Jaeger Cholesterol.total/Ch olesterol in HDL [Mass ratio] 4.0 {ratio} Normal [facility] Comment on above: Performed By: #### B MP, LIPID, LIVER, TSH #### [facility] [address] [place] [address] [address] Lloyd Jaeger HDL NORMAL > or = 60 mg/dl - LO W CARDIOVASCULAR RISK <40 mg/dl - HIGH CARDIOVASCULAR RISK Normal [facility] Comment on above: Performed By: #### B MP, LIPID, LIVER, TSH #### [facility] [address] [place] [address] [address] Lloyd Jaeger LDL CALC NORMAL SEE BELOW Normal [facility] Comment on above: Result Comment: <100 mg/dl OPTIMAL 100 - 129 mg/dl NEAR OR ABOVE OPTIMAL 130 - 159 mg/dl BORDERLINE HIGH 160 - 189 mg/dl HIGH >190 mg/dl VERY HIGH Performed By: #### B MP, LIPID, LIVER, TSH #### [facility] [address] [place] [address] [address] Lloyd Jaeger Triglyceride [Mass/Vol] 142 mg/dL Normal <=150 [facility] Comment on above: Performed By: #### B MP, LIPID, LIVER, TSH #### [facility] [address] [place] [address] [address] Lloyd Jaeger VLDL CALC 28.4 mg/dL Normal [facility] Comment on above: Performed By: #### B MP, LIPID, LIVER, TSH #### [facility] [address] [place] [address] [address] Lloyd Jaeger LIVER PROFILEon 06-15-2022 Albumin [Mass/Vol] 4.1 g/dL Normal 3.4-5.0 [facility] Comment on above: Performed By: #### B MP, LIPID, LIVER, TSH #### [facility] [address] [place] [address] [address] Lloyd Jaeger Albumin/Globulin [Mass ratio] 1.2 {ratio} Normal [facility] Comment on above: Performed By: #### B MP, LIPID, LIVER, TSH #### [facility] [address] [place] [address] [address] Lloyd Jaeger ALP [Catalytic activity/Vol] 92 U/L Normal 46-116 [facility] Comment on above: Performed By: #### B MP, LIPID, LIVER, TSH #### [facility] [address] [place] [address] [address] Lloyd Jaeger ALT [Catalytic activity/Vol] 35 U/L Normal 14-59 [facility] Comment on above: Performed By: #### B MP, LIPID, LIVER, TSH #### [facility] [address] [place] [address] Dr. Lloyd Jaeger AST [Catalytic activity/Vol] 21 U/L Normal 15-37 [facility] Comment on above: Performed By: #### B MP, LIPID, LIVER, TSH #### [facility] [address] [place] [address] Dr. Lloyd Jaeger BILI, CONJUGATED 0.1 mg/dL Normal 0.0-0.2 [facility] Comment on above: Performed By: #### B MP, LIPID, LIVER, TSH #### [facility] [address] [place] [address] Dr. Lloyd Jaeger Bilirubin [Mass/Vol] 0.5 mg/dL Normal 0.2-1.0 [facility] Comment on above: Performed By: #### B MP, LIPID, LIVER, TSH #### [facility] [address] [place] [address] Dr. Lloyd Jaeger Globulin (S) [Mass/Vol] 3.3 g/dL Normal [facility] Comment on above: Performed By: #### B MP, LIPID, LIVER, TSH #### [facility] [address] [place] [address] Dr. Lloyd Jaeger Protein [Mass/Vol] 7.4 g/dL Normal 6.4-8.2 [facility] Comment on above: Performed By: #### B MP, LIPID, LIVER, TSH #### [facility] [address] [place] [address] Dr. Lloyd Jaeger PROF CHEM 8 (BAS METB)on Anion gap [Moles/Vol] 16.7 mmol/L Normal [facility] Comment on above: Performed By: #### B MP, LIPID, LIVER, TSH #### [facility] [address] [place] [address] Dr. Lloyd Jaeger Calcium [Mass/Vol] 9.3 mg/dL Normal 8.5-10.1 [facility] Comment on above: Performed By: #### B MP, LIPID, LIVER, TSH #### [facility] [address] [place] [address] [address] Lloyd Jaeger Chloride [Moles/Vol] 104 mmol/L Normal 98-107 [facility] Comment on above: Performed By: #### B MP, LIPID, LIVER, TSH #### [facility] [address] [place] [address] Dr. Lloyd Jaeger CO2 [Moles/Vol] 23.8 mmol/L Normal 21.0-32.0 [facility] Comment on above: Performed By: #### B MP, LIPID, LIVER, TSH #### [facility] [address] [place] [address] [address] Lloyd Jaeger Creatinine [Mass/Vol] 1.13 mg/dL Critically high 0.55-1.02 [facility] Comment on above: Performed By: #### B MP, LIPID, LIVER, TSH #### [facility] [address] [place] [address] Dr. Lloyd Jaeger EGFR-AF GAMBIAN 60 mL/min/1.73m2 Normal >=[address] [facility] Comment on above: Performed By: #### B MP, LIPID, LIVER, TSH #### [facility] [address] [place] [address] Dr. Lloyd Jaeger EGFR-NON AF GAMBIAN 49 mL/min/1.73m2 Critically low >=60 [facility] Comment on above: Performed By: #### B MP, LIPID, LIVER, TSH #### [facility] [address] [place] [address] [address] Lloyd Jaeger Glucose [Mass/Vol] 129 mg/dL Critically high 74-106 [facility] Comment on above: Performed By: #### B MP, LIPID, LIVER, TSH #### [facility] [address] [place] [address] Dr. Lloyd Jaeger Potassium [Moles/Vol] 3.5 mmol/L Normal 3.5-5.1 [facility] Comment on above: Performed By: #### B MP, LIPID, LIVER, TSH #### [facility] [address] [place], [place] [id number] Dr. Lloyd Jaeger Sodium [Moles/Vol] 141 mmol/L Normal 136-145 [facility] Comment on above: Performed By: #### B MP, LIPID, LIVER, TSH #### [facility] [address] [place] [address] Dr. Lloyd Jaeger Urea nitrogen [Mass/Vol] 13.0 mg/dL Normal 7.0-18.0 [facility] Comment on above: Performed By: #### B MP, LIPID, LIVER, TSH #### [facility] [address] [place] [address] [address] Lloyd Jaeger Urea nitrogen/Creatinine [Mass ratio] 11.5 mg/mg Normal [facility] Comment on above: Performed By: #### B MP, LIPID, LIVER, TSH #### [facility] [address] [place] [address] Dr. Lloyd Jaeger TSHon 06-15-2022 TSH 1.710 uIU/mL Normal 0.358-3.740 [facility] Comment on above: Performed By: #### B MP, LIPID, LIVER, TSH #### [facility] [address] [place] [address] Dr. Lloyd Jaeger VITAMIN D 25 OHon 06-15-2022 VIT D 25-OH 39.8 ng/mL Normal [facility] Comment on above: Performed By: #### F ERR, VITAD, IRON #### [facility] [address] [place] [address] Dr. Lloyd Jaeger VIT D RANGES SEE BELOW Normal [facility] Comment on above: Result Comment: <20 ng/mL Vit D deficient 20 - <30 ng/mL Vit D insufficient 30 - 100 ng/mL Vit D sufficient >100 ng/mL Potential Toxicity Performed By: #### F ERR, VITAD, IRON #### [facility] [address] [place] [address] Dr. Lloyd Jaeger XR HIP RIGHT (2-3 VIEWS)on 0 10-26-2019 XR HIP RIGHT (2-3 VIEWS) EXAMINATION: TWO XRAY VIEWS OF THE RIGHT HIP 10/26/2019 4:36 pm COMPARISON: None. HISTORY: ORDERING SYSTEM PROVIDED HISTORY: pain TECHNOLOGIST PROVIDED HISTORY: X-ray injured hip and pelvis - add femur if pain and/or swelling is distal to the hip pain FINDINGS: AP and frog-leg lateral views of the hip are submitted for review. Bony mineralization is normal. There is no evidence for acute fracture or dislocation. Femoroacetabular joint space is maintained. No aggressive mass lesion or periostitis identified. Overlying soft tissues are unremarkable. IMPRESSION: No acute osseous abnormality of the hip. Interpreted by: Saji Payton MD Signed by: Saji Payton MD 10/26/19 Final result Normal [facility] Operative Reporton 7 Operative Report MR#: [id number] [facility] Pt. Name: Jorden Piña Room #: 0C Discharge Date: Birthdate: 1965 OPERATIVE REPORTDATE OF SURGERY: 05/04/2017SURGEON: Leia Dominguez M.D.SURGEON: Leia Dominguez M.D.WIRE DRAWING DIE MAKER: Deny Milan M.D.PREOPERATIVE DIAGNOSIS: Left wrist triangular fibrocartilage complextear.POSTOPERAT ELLY DIAGNOSES:1. Left wrist triangular fibrocartilage complex tear.2. Left wrist synovitis.OPERATIVE PROCEDURE:1. Left wrist arthroscopy and debridement including synovectomy.2. Debridement of triangular fibrocartilage complex.DESCRIPTION OF PROCEDURE: Under regional anesthetic, the patient's leftupper extremity was prepped and draped for the proposed procedure.Tourniquet applied to left proximal humerus, was inflated to 250 mmHgfollowing exsanguination of the limb by application of an Esmarch bandage.The arm was then placed in a wrist power by 15 pounds of traction wasplaced through the wrist. Initially camera portal was established, whichwas thought to be the 3/4 interval, however, noted was inadvertently themidcarpal joint had been entered. This was best used to complete themidcarpal arthroscopy. Noted was that the articular surfaces were wellpreserved. There was a fair degree of synovitis along the ulnar aspect. Aworking portal was established distal to the 4/5 portal, whereby underblunt dissection, the 2.5 mm shaver was introduced and debridementperformed.A t this time, the radiocarpal joint was explored through a proximal 3/4camera portal. Noted was that the ligamentous structures were intact. Asnoted was that from the midcarpal drive-through sign was negative. Notedagain was that the articular surfaces were well preserved. As the TFCCregion was explored, noted was a trampoline effect was intact. Initially,it appeared as if there was some avulsion of the TFCC, but furtherevaluation revealed that it was in fact intact and confluent with the ulnarcapsule. Noted was that there was a significant degree of synovitis andhypertrophy synovium anterior working portal. This synovectomy wasperformed. On further evaluation, noted was that the surface of the TFCChad an area that was frayed and this area was debrided thus completing thedebridement of the TFCC.Portal sites were removed. Portal sites were closed with a 4-0 Novafil. Asterile bulky dressing applied and the wrist was protected with applicationof a wrist splint. There were no complications. [facility].Electronical ly Signed by:Leia Dominguez M.D. 05/06/2017 12:38 P Michael Dominguez M.D.Date Dict: 05/04/2017/10:29 Carolyn/Leia Dominguez M.D.Date Trans: 05/04/2017 07:54 P/[id number]: Cali Mendez M.D. [address] [facility] [id number] [facility] Encounters Encounter Date Encounter Type Care Provider Facility Start: 08-17-2023 End: 08-17-2023 ambulatory CALI MENDEZ Not Available Start: 02-02-2023 End: 02-03-2023 ambulatory EMILIE HODGSON . Facility:[facility] Start: 11-23-2022 End: 11-23-[address] BAKARI CASTILLO . Facility:[facility] Start: 09-17-2022 End: 09-18-2022 ambulatory SHAIKH Jonathan SMILEY Facility:[facility] Start: 07-28-2022 End: 07-29-[address] CALI MENDEZ Facility:[facility] Start: 06-18-2022 Encounter for genera l adult medical examination without abnormal findings DR CALI MENDEZ [facility] Start: 06-15-2022 End: 06-16-[address] CALI MENDEZ Facility:[facility] Start: 06-15-2022 End: 06-16-2022 Encounter for general adult medical examination without abnormal findings DR CALI MENDEZ Facility:[facility] Start: 10-26-2019 End: 10-26-2019 Emergency department patient visit [facility] Start: 05-04-2017 End: 05-05-2017 Ambulatory ABDULAZIM GISSELL Facility:[facility] Procedures Date Procedure Procedure Detail Performing Clinician Start: 10-26-2019 Radex hip unilateral with pelvis 2-3 views Start: 05-04-2017 ANESTH LOWER ARM SURGERY COLETTE CANTOR Start: 05-04-2017 WRIST ARTHROSCOPY/SURGERY ABDULAZIM GISSELL Payers Date Payer Category Payer Medicaid [id number] 1965 Unknown [id number] 2.16.84 [id number] 1965 Unknown [id number] 2.16.84 [id number] 1965 Unknown [id number] 2.16.84 [id number] 1965 Unknown [id number] 2.16.84 [id number] 1965 Unknown [id number] 2.16.84 [id number] 1965 Unknown [id number] 1960 Unknown [id number] 1960 Unknown [id number] Worker's Compensation [id number] Consultation note 02-02-2023 Note Date & Type Note Facility 02-02-2023 Note CONSULTATION CONSULTATION DATE: TO: [facility] CHIEF COMPLAINT: Includes right sided hip pain, buttock pain. HISTORY OF PRESENT ILLNESS: Review of systems, past medical/surgical history were obtained and documented on the health questionnaire and is available upon request. Patient is a 57-year-old female who reports having pain for at least six months. Since that time, she has been on nonsteroidal agents. Most recently, patient has also been on a SANDERS-2 inhibitor, Celebrex 200 mg b.i.d. She has also undergone activity modification. Despite this, she still has persistent pain in the above mentioned areas. She describes the pain as being sharp in character with a burning component, increased with activities such as standing, walking and performing transitioning maneuvers. She also reports light touch to the area is quite uncomfortable. She feels most comfortable in the semi-recumbent position. Denies any change in bowel and bladder habits or new sensorimotor changes in the lower extremities. EXAM: Her examination is notable for the patient having no clinical radiculopathy or myelopathy involving the lower extremities. Patient did have dysesthesia and hyperesthesia overlying the distribution of the lateral cutaneous branch of the iliohypogastric nerve on the right side. This patient had associated myofascial spasm of the gluteus medius on the right side as well. 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 RECOMMENDATIONS: I recommend she start aquatic therapy, baclofen 10 mg pills, half to one up to b.i.d. for myofascial spasm, and to proceed with a diagnostic right sided injection of the lateral cutaneous branch of the iliohypogastric nerve under fluoroscopic guidance. As part of providing excellent, safe, comprehensive care, the following was completed at our patient's visit: 1. A medication reconciliation and review to ensure accurate knowledge of current/active medications, including asking our patients to inform us about any znxe-[id number] medications or herbal remedies/nutritional supplements/alternative remedies. 2. A review to specifically ensure our patients have had annual screening for: elevated body mass index (BMI, see intake chart for exact total), tobacco use, screening for depression, and screening for unhealthy alcohol use. When screening is concerning, patients are provided with education and the specific recommendation to discuss the concerning health issue and treatment options with their primary care provider. [facility] Summary Purpose Family History No Family History Records FoundNo Family History Records FoundNo Family History Records FoundNo Family History Records Found Advance Directives No Advanced Directives Records FoundNo Advanced Directives Records FoundNo Advanced Directives Records FoundNo Advanced Directives Records Found Additional Source Comments INFORMATION SOURCE (unrecogn ized section and content) DATE CREATED AUTHOR 03/02/[address] [facility] DATE CREATED AUTHOR AUTHOR'S ORGANIZ ATION 10/26/2019 [facility] DATE CREATED AUTHOR AUTHOR'S ORGANIZ ATION 02/12/2023 [facility] DATE CREATED AUTHOR AUTHOR'S ORGANIZ ATION 08/19/2023 [facility] EPIC FOR RECORDS PERTAINING TO PATIENTS WHO ARE OR HAVE BEEN ENROLLED IN A CHEMICAL DEPENDENCY/SUBSTANCEABUSE PROGRAM, SOME INFORMATION MAY BE OMITTED. This clinical summary was aggregated from multiple sources. Caution should be exercised in using it in the provision of clinical care. This summary normalizes information from multiple sources, and as a consequence, information in this document may materially change the coding, format and clinical context of patient data. In addition, data may be omitted in some cases. CLINICAL DECISIONS SHOULD BE BASED ON THE PRIMARY CLINICAL RECORDS. [employer] provides no warranty or guarantee of the accuracy or completeness of information in this document.
[2023-09-14 10:35] VITALS: BP 132/81; PULSE 85; RESP 16; TEMP 36.5; O2SAT 98
[2023-09-14] MEDS: 0.9 % SODIUM CHLORIDE 500 ML IV (10:45)
[2023-09-14 10:51] LABS: Glucometer 100 mg/dL (74-106)
[2023-09-14] MEDS: LIDOCAINE HCL 2% 400 MG/20 ML MDV 5 ML INJ (11:54)
[2023-09-14] MEDS: METHYLPREDNISOLONE ACETATE 40 MG/ML VIAL INJ (11:54)
[2023-09-14] MEDS: BUPIVACAINE HCL 0.25% PF 25 MG/10 ML VIAL 4 ML INJ (11:54)
--- NOTE | 2023-09-14 11:58 | W.PM.PROCNOT ---
Date of procedure: 09/14/23 Pre-op diagnosis: Lumbar Spondylosis Post-op diagnosis: same as pre-op Procedure: Right Lumbar 4/5, 5/S1 Radiofrequency ablation Under fluoroscopic guidance Rhizotomy was created using radio frequency ablation at 80?C for 90 seconds 1 to 2 lesions created at each site. Post lesioning injection of 2 mL each of 0.25% Marcaine and 2% lidocaine with Depo-Medrol 40mg. 0.5 to 1 mL injected at each site IV in place yes If Intravenous fluids: NS at KVO Anesthesia local 2% lidocaine for Anesthesia Other: MAC Timeout process compliant After informed consent obtained.Patient brought to the procedure room placed in the prone position skin overlying the area was prepped and draped in a sterile fashion using betadine. 25 gauge needle was used to create a skin wheal over each of the targeted areas utilizing 2% lidocaine. A rhizotomy needle with a 10 mm active tip was inserted over each of the anesthetized areas and directed towards each of the medial branches accomplished under fluoroscopic guidance. after encountering the same we had positive sensory stimulation, negative motor stimulation was noted. lesions were then created. Post lesioning, steroid solution was injected needles removed. Patient was transferred to recovery room in stable condition to be discharged home after meeting criteria. Anesthesia: MAC Surgeon: Dony Montelongo Condition: stable
[2023-09-14 12:06] VITALS: BP 147/97; PULSE 88; RESP 16; TEMP 37; O2SAT 98
[2023-09-14 12:10] VITALS: BP 141/82; PULSE 88; RESP 18; O2SAT 96
== END 2023-09-14 12:27 | disposition home or self-care (01) ==
LOC: SURGOUT 10:28
PROVIDERS: PCP Family Medicine; Visit Provider Anesthesiology Pain Medicine
PROC: (CPT 1992; principal; 2023-09-14 11:20)
DX: M47.816 Spondylosis without myelopathy or radiculopathy, lumbar region (principal); E11.9 Type 2 diabetes mellitus without complications
CPT/HCPCS: 36415; 64635; 64636; 82948; J0665; J1030; J2250; J2704

== ENCOUNTER 2023-09-30 13:46 | Outpatient (OUT) | payer BC, MEDICAID, SELFPAY ==
--- OUTSIDE RECORDS SUMMARY | 2023-09-30 13:50 | XMS_ITS | CCD ---
Author Name Unknown Address [address] [place] [address] Organization [facility] Care Team Providers Care Camera Operator Name Role Phone GISSELL, ABDULAZIM Unavailable Unavailable GISSELL, ABDULAZIM Unavailable Unavailable CALI MENDEZ Unavailable Unavailable SELF, REFERRED Unavailable Unavailable [place] Unavailable Unavailable GISSELL, ABDULAZIM Unavailable Unavailable [place] Unavailable Unavailable DEVAUGHNLANDRYI Unavailable Unavailable NADEREAntonio, DR CALI Leon Attending Unavailable NADKINJAL, DR CALI Leon Consulting Unavailable ANDREA, DR CALI Leon Primary Care Unavailable NADKINJAL, DR CALI Leon Admitting Unavailable LAKSHMIPATHY ., NARENDWILLIE Attending Yumiko vailable LAKSHMIPATHY ., EMILIE Consulting Yumiko vailable LAKSHMIPATHY ., NARENDWILLIE Admitting Yumiko vailable NADEREAntonio, DR CALI Leon Primary Care Unavailable KARASIK ., DR VILLEGAS Admitting Unavailabl e KARASIK ., DR VILLEGAS Attending Unavailabl e KARASIK ., DR VILLEGAS Consulting Unavailabl e NADERER, DR CALI Leon Primary Care Unavailable SHERICE, H Admitting Unavailable ZIMORENA, DR GABRIELA Alvarez Consulting Unavailable SHERICE, H Attending Unavailable NADKINJAL, DR CALI Leon Primary Care Unavailable SHERICE, H Consulting Unavailable ANDREA, DR CALI Leon Admitting Unavailable DINORAH, DR GABRIELA Alvarez Consulting Unavailable ANDREA, DR CALI Leon Attending Unavailable NADERER, DR CALI Leon Primary Care Unavailable ANDREA, DR CALI Leon Consulting Unavailable CALI MENDEZ Attending Unavailable Allergies Allergy Classification Reported Allergen(s) Allergy Type Date of Onset Reaction(s) Facility (2 sources) penicillin Drug Allergy 04-27-2017 [facility] Repository Problems Active Problems Problem Classification Problem [...] 30 to 65on 12-01-2022 . . Normal [facility] Comment on above: Result Comment: Perf ormed at: WB Performed By: #### 4 [id number] ####[facility] [address] [place] [address]Dr. Lloyd Jaeger Age Gdln ACOG Testing 30-65 [facility] Comment on above: Performed By: #### 4 [id number] ####[facility] [address] [place] [address]Dr. Lloyd Jaeger DIAGNOSIS: Comment Normal [facility] Comment on above: Result Comment: NEGA TIVE FOR INTRAEPITHELIAL LESION OR MALIGNANCY. Performed at: WB Performed By: #### 4 [id number] ####[facility] [address] [place] [address]Dr. Lloyd Jaeger HPV Aptima Negative Normal Negative [facility] Comment on above: Result Comment: This nucleic acid amplification test detects fourteen high-risk HPV types (16,18,31,33,35,39,45,51,52,56,58,59,66,68) without differentiation. Performed at: =G Performed By: #### 4 [id number] ####[facility] [address] [place] [address]Dr. Lloyd Jaeger HPV Genotype Reflex Comment Normal [facility] Comment on above: Result Comment: Crit eria not met, HPV Genotype not performed. Performed at: WB Performed By: #### 4 [id number] ####[facility] [address] [place] [address]Dr. Lloyd Jaeger Methodology: Comment Normal [facility] Comment on above: Result Comment: This liquid based ThinPrep(R) pap test was screened with the use of an image guided system. Performed at: WB Performed By: #### 4 [id number] ####[facility] [address] [place] [id number]. Lloyd Jaeger Note: Comment Normal [facility] Comment on above: Result Comment: The Pap smear is a screening test designed to aid in the detection of premalignant and malignant conditions of the uterine cervix. It is not a diagnostic procedure and should not be used as the sole means of detecting cervical cancer. Both false-positive and false-negative reports do occur. . Performed at: WB Performed By: #### 4 [id number] ####[facility] [address] [place] [id number]. Lloyd Jaeger Performed by: Comment Normal [facility] Comment on above: Result Comment: Bhavana Sanchez, Supervisory Sales Training Manager (ASCP) Performed at: WB Performed By: #### 4 [id number] ####[facility] [address] [place], [place] [address]Dr. Lloyd Jaeger Specimen adequacy: Comment Normal [facility] Comment on above: Result Comment: Sati sfactory for evaluation. No endocervical component is identified. Performed at: WB Performed By: #### 4 [id number] ####[facility] [address] [place], [place] [address]Dr. Lloyd Jaeger MRI LSPINE WO CONon 09-17-[address] [facility] WO CON EXAMINATION: MRI LSJASPER WO CON HISTORY: Lumbar radiculopathy ; lumbar [...] GABRIELA COPELAND Date: 2022-09-17 17:24 Normal [facility] XR LSPINE 2_3 VIEWSon 2021 XR [...] GABRIELA COPELAND Date: 2022-07-29 09:13 Normal [facility] CBC AUTO DIFFon 06-15-2022 BASO # 0.1 103/ul Normal 0.0-0.1 [facility] Comment on above: Performed By: #### C BC ####[facility] [address] [place] [id number]. Lloyd Jaeger Basophils/100 WBC (Bld) 0.6 % Normal 0.2-2.0 [facility] Comment on above: Performed By: #### C BC ####[facility] [address] [place] [id number]. Lloyd Jaeger EO # 0.4 103/ul Normal 0.0-0.7 [facility] Comment on above: Performed By: #### C BC ####[facility] [address] [place] [id number]. Lloyd Jaeger Eosinophils/100 WBC (Bld) 4.8 % Normal 0.9-7.0 [facility] Comment on above: Performed By: #### C BC ####[facility] [address] [place] [id number]. Lloyd Jaeger Erythrocyte distribution width (RBC) [Ratio] 12.7 % Normal 11.0-15.0 [facility] Comment on above: Performed By: #### C BC ####[facility] [address] [place], [place] [address]Dr. Lloyd Jaeger Hematocrit (Bld) [Volume fraction] 38.5 % Normal 36.0-48.0 [facility] Comment on above: Performed By: #### C BC ####[facility] [address] [place], [place] [address]Dr. Lloyd Jaeger Hemoglobin (Bld) [Mass/Vol] 12.8 g/dL Normal 12.0-16.0 [facility] Comment on above: Performed By: #### C BC ####[facility] [address] [place] [address]Dr. Lloyd Jaeger IG # 0.02 10e3/ul Normal 0.00-0.03 [facility] Comment on above: Performed By: #### C BC ####[facility] [address] [place], [place] [address]Dr. Llyod Jaeger IG % 0.3 % Normal 0.0-0.5 [facility] Comment on above: Performed By: #### C BC ####[facility] [address] [place], [place] [address]Dr. Lloyd Jaeger LYMPH # 2.5 103/ul Normal 1.2-3.8 [facility] Comment on above: Performed By: #### C BC ####[facility] [address] [place], [place] [address]Dr. Lloyd Jaeger Lymphocytes/100 WBC (Bld) 31.0 % Normal 20.5-60.0 [facility] Comment on above: Performed By: #### C BC ####[facility] [address] [place] [id number]. Lloyd Jaeger MANUAL DIFF REQ NO Normal [facility] Comment on above: Performed By: #### C BC ####[facility] [address] [place] [id number]. Lloyd Jaeger MCH (RBC) [Entitic mass] 30.6 pg Normal 26.7-34.0 [facility] Comment on above: Performed By: #### C BC ####[facility] [address] [place] [address]Dr. Lloyd Jaeger MCHC (RBC) [Mass/Vol] 33.2 g/dL Normal 29.9-35.2 [facility] Comment on above: Performed By: #### C BC ####[facility] [address] [place] [address]Dr. Lloyd Mil MCV (RBC) [Entitic vol] 92.1 fL Normal 81.0-99.0 [facility] Comment on above: Performed By: #### C BC ####[facility] [address] [place] [address]Dr. Lloyd Mil MONO # 0.4 103/ul Normal 0.3-0.8 [facility] Comment on above: Performed By: #### C BC ####[facility] [address] [place] [address]Dr. Micaelacolin Jaeger Monocytes/100 WBC (Bld) 5.5 % Normal 1.7-12.0 [facility] Comment on above: Performed By: #### C BC ####[facility] [address] [place] [id number]. Lloyd Jaeger NEUT # 4.6 103/ul Normal 1.4-6.5 [facility] Comment on above: Performed By: #### C BC ####[facility] [address] [place] [address]Dr. Lloyd Jaeger Neutrophils/100 WBC (Bld) 57.8 % Normal 43.0-75.0 [facility] Comment on above: Performed By: #### C BC ####[facility] [address] [place] [id number]. Micaelacolin Mil Platelet mean volume (Bld) [Entitic vol] 10.6 fL Normal 9.5-13.5 [facility] Comment on above: Performed By: #### C BC ####[facility] [address] [place] [id number]. Micaelacolin Jaeger PLT 233 103/ul Normal 150-450 [facility] Comment on above: Performed By: #### C BC ####[facility] [address] [place] [id number]. Lloyd Jaeger RBC 4.18 106/ul Critically low 4.20-5.40 [facility] Comment on above: Performed By: #### C BC ####[facility] [address] [place] [id number]. Lloyd Jaeger WBC 8.0 103/ul Normal 4.0-11.0 [facility] Comment on above: Performed By: #### C BC ####[facility] [address] [place] [id number]. Lloyd Jaeger FERRITINon 06-15-2022 Ferritin [Mass/Vol] 160.0 ng/mL Normal 8.0-252.0 [facility] Comment on above: Performed By: #### F ERR, VITAD, IRON #### [facility] [address] [place], [place] [address] Dr. Lloyd Jageer GLYCOHEMOGLOBIN A1Con 2021 ADA RECOMMENDATION SEE BELOW Normal [facility] Comment on above: Result Comment: ADA RECOMMENDED LIMIT 4.0 - 6.0 ADA THERAPEUTIC TARGET < 7.0 ACTION SUGGESTED > 7.0 Performed By: #### A 1C ####[facility] [address] [place] [id number] Maria Jaeger Glucose [Mass/Vol] 117 mg/dL Normal [facility] Comment on above: Performed By: #### A 1C ####[facility] [address] [place] [id number] Maria Jaeger HbA1c (Bld) [Mass fraction] 5.7 % Normal 4.5-6.2 [facility] Comment on above: Performed By: #### A 1C ####[facility] [address] [place], [place] [address]UeDr. Lloyd Jaeger IRONon 06-15-2022 Iron [Mass/Vol] 70.0 ug/dL Normal 50.0-170.0 [facility] Comment on above: Performed By: #### F ERR, VITAD, IRON #### [facility] [id number] [address] Lloyd Jaeger LIPID PROFILEon 06-15-2022 CHOL-HDL RATIO NORM SEE BELOW Normal [facility] Comment on above: Result Comment: 3.3 - 4.4 LOW RISK 4.4 - 7.1 AVERAGE RISK 7.1 - 11.0 MODERATE RISK >11.0 HIGH RISK Performed By: #### B MP, LIPID, LIVER, TSH #### [facility] [address] [address] [address] Lloyd Jaeger Cholesterol [Mass/Vol] 207 mg/dL Critically high <=200 [facility] Comment on above: Performed By: #### B MP, LIPID, LIVER, TSH #### [facility] [address] [place] [address] [address] Lloyd Jaeger Cholesterol in HDL [Mass/Vol] 52 mg/dL Normal 40-60 [facility] Comment on above: Performed By: #### B MP, LIPID, LIVER, TSH #### [facility] [address] [place] [address] [address] Lloyd Jaeger Cholesterol in LDL [Mass/Vol] 126.6 mg/dL Normal [facility] Comment on above: Performed By: #### B MP, LIPID, LIVER, TSH #### [facility] [address] [place] [address] [address] Lloyd Jaeger Cholesterol.total/Ch olesterol in HDL [Mass ratio] 4.0 {ratio} Normal [facility] Comment on above: Performed By: #### B MP, LIPID, LIVER, TSH #### [facility] [address] [address] [address] Lloyd Jaeger HDL NORMAL > or = 60 mg/dl - LO W CARDIOVASCULAR RISK <40 mg/dl - HIGH CARDIOVASCULAR RISK Normal [facility] Comment on above: Performed By: #### B MP, LIPID, LIVER, TSH #### [facility] [address] [address] [address] Lloyd Jaeger LDL CALC NORMAL SEE BELOW Normal [facility] Comment on above: Result Comment: <100 mg/dl OPTIMAL 100 - 129 mg/dl NEAR OR ABOVE OPTIMAL 130 - 159 mg/dl BORDERLINE HIGH 160 - 189 mg/dl HIGH >190 mg/dl VERY HIGH Performed By: #### B MP, LIPID, LIVER, TSH #### [facility] [address] [place] [address] [address] Lloyd Jaeger Triglyceride [Mass/Vol] 142 mg/dL Normal <=150 [facility] Comment on above: Performed By: #### B MP, LIPID, LIVER, TSH #### [facility] [address] [address] [address] Lloyd Jaeger VLDL CALC 28.4 mg/dL Normal [facility] Comment on above: Performed By: #### B MP, LIPID, LIVER, TSH #### [facility] [address] [address] [address] Lloyd Jaeger LIVER PROFILEon 06-15-2022 Albumin [Mass/Vol] 4.1 g/dL Normal 3.4-5.0 [facility] Comment on above: Performed By: #### B MP, LIPID, LIVER, TSH #### [facility] [address] [place] [address] [address] Lloyd Jaeger Albumin/Globulin [Mass ratio] 1.2 {ratio} Normal [facility] Comment on above: Performed By: #### B MP, LIPID, LIVER, TSH #### [facility] [address] [address] [address] Lloyd Jaeger ALP [Catalytic activity/Vol] 92 U/L Normal 46-116 [facility] Comment on above: Performed By: #### B MP, LIPID, LIVER, TSH #### [facility] [address] [address] [address] Lloyd Jaeger ALT [Catalytic activity/Vol] 35 U/L Normal 14-59 [facility] Comment on above: Performed By: #### B MP, LIPID, LIVER, TSH #### [facility] [address] [place] [address] Dr. Lloyd Jaeger AST [Catalytic activity/Vol] 21 U/L Normal 15-37 [facility] Comment on above: Performed By: #### B MP, LIPID, LIVER, TSH #### [facility] [address] [place] [address] Dr. Lloyd Jaeger BILI, CONJUGATED 0.1 mg/dL Normal 0.0-0.2 [facility] Comment on above: Performed By: #### B MP, LIPID, LIVER, TSH #### [facility] [address] [place] [address] Dr. Lloyd Jaeger Bilirubin [Mass/Vol] 0.5 mg/dL Normal 0.2-1.0 [facility] Comment on above: Performed By: #### B MP, LIPID, LIVER, TSH #### [facility] [address] [place] [address] Dr. Lloyd Jaeger Globulin (S) [Mass/Vol] 3.3 g/dL Normal [facility] Comment on above: Performed By: #### B MP, LIPID, LIVER, TSH #### [facility] [address] [place] [address] Dr. Lloyd Jaeger Protein [Mass/Vol] 7.4 g/dL Normal 6.4-8.2 [facility] Comment on above: Performed By: #### B MP, LIPID, LIVER, TSH #### [facility] [address] [place] [address] Dr. Lloyd Jaeger PROF CHEM 8 (BAS METB)on Anion gap [Moles/Vol] 16.7 mmol/L Normal [facility] Comment on above: Performed By: #### B MP, LIPID, LIVER, TSH #### [facility] [address] [place] [address] Dr. Lloyd Jaeger Calcium [Mass/Vol] 9.3 mg/dL Normal 8.5-10.1 [facility] Comment on above: Performed By: #### B MP, LIPID, LIVER, TSH #### [facility] [address] [address] [address] Lloyd Jaeger Chloride [Moles/Vol] 104 mmol/L Normal 98-107 [facility] Comment on above: Performed By: #### B MP, LIPID, LIVER, TSH #### [facility] [address] [place] [address] Dr. Lloyd Jaeger CO2 [Moles/Vol] 23.8 mmol/L Normal 21.0-32.0 [facility] Comment on above: Performed By: #### B MP, LIPID, LIVER, TSH #### [facility] [address] [address] [address] Lloyd Jaeger Creatinine [Mass/Vol] 1.13 mg/dL Critically high 0.55-1.02 [facility] Comment on above: Performed By: #### B MP, LIPID, LIVER, TSH #### [facility] [address] [place] [address] Dr. Lloyd Jaeger EGFR-AF MOROCCAN 60 mL/min/1.73m2 Normal >=60 [facility] Comment on above: Performed By: #### B MP, LIPID, LIVER, TSH #### [facility] [address] [place] [address] Dr. Lloyd Jaeger EGFR-NON AF MOROCCAN 49 mL/min/1.73m2 Critically low >=60 [facility] Comment on above: Performed By: #### B MP, LIPID, LIVER, TSH #### [facility] [address] [place] [address] Dr. Lloyd Jaeger Glucose [Mass/Vol] 129 mg/dL Critically high 74-106 [facility] Comment on above: Performed By: #### B MP, LIPID, LIVER, TSH #### [facility] [address] [place] [address] Dr. Lloyd Jaeger Potassium [Moles/Vol] 3.5 mmol/L Normal 3.5-5.1 [facility] Comment on above: Performed By: #### B MP, LIPID, LIVER, TSH #### [facility] [address] [place] [address] Dr. Lloyd Jaeger Sodium [Moles/Vol] 141 mmol/L Normal 136-145 [facility] Comment on above: Performed By: #### B MP, LIPID, LIVER, TSH #### [facility] [address] [address] [address] Lloyd Jaeger Urea nitrogen [Mass/Vol] 13.0 mg/dL Normal 7.0-18.0 [facility] Comment on above: Performed By: #### B MP, LIPID, LIVER, TSH #### [facility] [address] [place] [address] [address] Lloyd Jaeger Urea nitrogen/Creatinine [Mass ratio] 11.5 mg/mg Normal [facility] Comment on above: Performed By: #### B MP, LIPID, LIVER, TSH #### [facility] [address] [place] [address] [address] Lloyd Jaeger TSHon 06-15-2022 TSH 1.710 uIU/mL Normal 0.358-3.740 [facility] Comment on above: Performed By: #### B MP, LIPID, LIVER, TSH #### [facility] [address] [place] [address] [address] Lloyd Jaeger VITAMIN D 25 OHon 06-15-2022 VIT D 25-OH 39.8 ng/mL Normal [facility] Comment on above: Performed By: #### F ERR, VITAD, IRON #### [facility] [address] [place] [address] [address] Lloyd Jaeger VIT D RANGES SEE BELOW Normal [facility] Comment on above: Result Comment: <20 ng/mL Vit D deficient 20 - <30 ng/mL Vit D insufficient 30 - 100 ng/mL Vit D sufficient >100 ng/mL Potential Toxicity Performed By: #### F ERR, VITAD, IRON #### [facility] [address] [address] [address] Lloyd Jaeger XR HIP RIGHT (2-3 [...] Saji Payton MD 10/26/19 Final result Normal [facility] Operative Reporton 7 Operative Report MR#: [id number] [facility] Pt. Name: Jorden Piña Room #: 0C Discharge Date: Birthdate: 1965 OPERATIVE REPORTDATE OF SURGERY: 05/04/2017SURGEON: Leia Dominguez M.D.SURGEON: Leia Dominguez M.D.TURKEY EGG GATHERER: Deny Milan M.D.PREOPERATIVE DIAGNOSIS: Left wrist triangular [...] There were no complications. [facility]Electronical ly Signed by:Leia Dominguez M.D. 05/06/2017 12:38 P Michael Dominguez M.D.Date Dict: 05/04/2017/10:29 Carolyn/Leia Domniguez M.D.Date Trans: 05/04/2017 07:54 P/mmoDN_[id number]: Cali Mendez M.D. [address] [facility] [address] [facility] Encounters Encounter Date Encounter Type Care Provider [...] examination without abnormal findings DR CALI MENDEZ [facility] Start: 06-15-2022 End: 06-16-[address] CALI MENDEZ Facility:[facility] Start: 06-15-2022 End: 06-16-2022 Encounter for general adult medical examination without abnormal findings DR CALI MENDEZ Facility:[facility] Start: 10-26-2019 End: 10-26-2019 Emergency department patient visit [facility] Start: 05-04-2017 End: 05-05-2017 Ambulatory ABDULAZIM GISSELL Facility:[facility] Procedures Date Procedure Procedure Detail Performing Clinician Start: 10-26-2019 Radex hip unilateral with pelvis 2-3 views Start: 05-04-2017 ANESTH LOWER ARM SURGERY COLETTE CANTOR Start: 05-04-2017 WRIST ARTHROSCOPY/SURGERY ABDULAZIM GISSELL Payers Date Payer Category Payer Medicaid [id number] 1965 Unknown [id number] 2.16.84 [id number] 1965 Unknown [id number] 2.16.84 [id number] 1965 Unknown [id number] 2.16.84 [id number] 1965 Unknown [id number] 2.16.84 [id number] 1965 Unknown [id number] 2.16.84 [id number] 1965 Unknown [id number] [id number] 1960 Unknown [id number] 1960 Unknown [id number] Worker's Compensation [id number] Consultation note 02-02-2023 Note Date & Type Note Facility 02-02-2023 Note CONSULTATION CONSULTATION DATE: TO: [facility] CHIEF COMPLAINT: Includes right sided hip [...] our patients to inform us about any lbcs-bss-xhhjrbb medications or herbal remedies/nutritional supplements/alternative remedies. 2. [...] options with their primary care provider. [facility] Summary Purpose Family History No Family History Records FoundNo Family History Records FoundNo Family History Records FoundNo Family History Records Found Advance Directives No Advanced Directives Records FoundNo Advanced Directives Records FoundNo Advanced Directives Records FoundNo Advanced Directives Records Found Additional Source Comments INFORMATION SOURCE (unrecogn ized section and content) DATE CREATED AUTHOR 03/02/2018 [facility] DATE CREATED AUTHOR AUTHOR'S ORGANIZ ATION 10/26/2019 [facility] DATE CREATED AUTHOR AUTHOR'S ORGANIZ ATION 02/12/2023 [facility] DATE CREATED AUTHOR AUTHOR'S ORGANIZ ATION 08/19/2023 [facility] [employer] EPIC FOR RECORDS PERTAINING TO PATIENTS [...] BE BASED ON THE PRIMARY CLINICAL RECORDS. [employer] provides no warranty or guarantee of the accuracy or completeness of information in this document.
--- NOTE | 2023-09-30 14:17 | P.CN_ITS ---
Consult Note: HPI Data of Consult Patient: known to practice within the last 3 years Requesting Physician: Ivy Benjamin NP Primary Care Provider: Cali Garcia MD Consult Narrative Reason for consult: f/u Narrative: Marimar Kendrick a pleasant 58 year old female presents for evaluation and management of right low back pain. Today rating pain 2/10, reporting 75% ongoing relief from right L4-5 L5-S1 thermal facet RFA with improvement in ability to complete tasks at work and with bending and twisting. Patient continues to find benefit from current medication regimen. cc:: CC: Ivy Benjamin NP Review of Systems ROS Status of ROS 10 or more systems reviewed and unremark able except as noted in history and below Musculoskeletal Reports: back pain PFSH PFSH Medical History Ectopic ?O00.90 - Unspecified ectopic without intrauterine (ICD- 10) Hearing deficit ?H91.90 - Unspecified hearing loss, unspecified ear (ICD-10) Low back pain ?M54.50 - Low back pain, unspecified (ICD-10) Osteoarthritis ?M19.90 - Unspecified osteoarthritis, unspecified site (ICD-10) Anxiety ?F41.9 - Anxiety disorder, unspecified (ICD-10) Loud snoring ?R06.83 - Snoring (ICD-10) Sleep apnea ?G47.30 - Sleep apnea, unspecified (ICD-10) Hypertension ?I10 - Essential (primary) hypertension (ICD-10) 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.9 - Congenital malformation of heart, unspecified (ICD-10) Smoker ?F17.200 - Nicotine dependence, unspecified, uncomplicated (ICD-10) CHF (congestive heart failure) ?I50.9 - Heart failure, unspecified (ICD-10) Myocardial infarct ?I21.9 - Acute myocardial infarction, unspecified (ICD-10) Surgical History S/P arthroscopic knee surgery ?Z98.890 - Other specified postprocedural states (ICD-10) Hx of breast reduction, elective ?Z98.890 - Other specified postprocedural states (ICD-10) S/P trigger finger release ?Z98.890 - Other specified postprocedural states (ICD-10) H/O wrist surgery ?Z98.890 - Other specified postprocedural states (ICD-10) H/O carpal tunnel repair ?Z98.890 - Other specified postprocedural states (ICD-10) H/O foot surgery ?Z98.890 - Other specified postprocedural states (ICD-10) History of cholecystectomy ?Z90.49 - Acquired absence of other specified parts of digestive tract (ICD- 10) H/O: hysterectomy ?Z90.710 - Acquired absence of both cervix and uterus (ICD-10) History of appendectomy ?Z90.49 - Acquired absence of other specified parts of digestive tract (ICD- 10) History of tonsillectomy and adenoidectomy ?Z90.89 - Acquired absence of other organs (ICD-10) Meds Home Medications and Allergies Home Medications Medication Instructions Recorded Confirmed Type alprazolam 1 mg tablet 1 mg PO TID PRN anxiety 03/05/23 08/10/23 History baclofen 10 mg tablet 10 mg PO Q12H 03/05/23 08/10/23 History celecoxib 200 mg capsule 200 mg PO BID 03/05/23 08/10/23 History dextroamphetamine-amphetamine 30 30 mg PO DAILY 03/05/23 08/10/23 History mg tablet (Adderall) metformin 500 mg tablet,extended 500 mg PO .EVENING 03/05/23 08/10/23 History release 24 hr trazodone 100 mg tablet 100 mg PO .HS 03/05/23 08/10/23 History diazepam 10 mg tablet (Valium) 10 mg PO BID 08/10/23 08/10/23 History Allergies Allergy/AdvReac Type Severity Reaction Status Date / Time Penicillins Allergy Mild Verified 07/13/23 08:45 Exam Constitutional Documenting provider has reviewed patient's vital signs: yes Common normals: no apparent distress, oriented x3, healthy appearing, alert and well nourished General appearance: cooperative Nutritional appearance: overweight HENMT Common normals: normocephalic, hearing grossly normal bilaterally and moist oral mucous membranes Head and scalp: normocephalic Eye Common normals: PERRL Pupil: PERRL Neck & C-Spine Common normals: full ROM General: normal visual inspection Chest Common normals: inspection of chest normal Respiratory Common normals: normal respiratory effort, no retractions and no use of accessory muscles Back & Pelvis Lumbar spine/lower back: normal to inspection, lumbar ROM normal and straight leg raise negative bilaterally Other: negative facet loading on right side Extremity Common normals: normal to inspection and full ROM Neuro Common normals: oriented x3, CN's II-XII intact bilaterally, moves all extremities, no focal motor deficits, no sensory deficits noted and deep tendon reflexes 2+ bilaterally Sensorium/orientation: alert Motor exam: strength 5/5 throughout and no movement abnormalities noted Psych Common normals: mental status grossly normal, thought process normal, cooperative, affect normal, speech normal and activity/motor behavior normal Speech: normal speech Thought process: normal thought process Assessment and Plan Assessment and Plan (1) Lumbar spondylosis: (2) Muscle spasm: Plan continue current medications, tolerating well without side effects f/u 6 months, sooner if needed
== END 2023-09-30 13:47 | disposition home or self-care (01) ==
LOC: PM 13:47
PROVIDERS: PCP Family Medicine; Visit Provider Nurse Practitioner
DX: M47.816 Spondylosis without myelopathy or radiculopathy, lumbar region (principal); M62.838 Other muscle spasm
CPT/HCPCS: G0463

== ENCOUNTER 2024-01-11 13:54 | Outpatient (OUT) | payer BC, SELFPAY ==
[2024-01-11 14:58] LABS: Estimated Average Glucose 126 mg/dL
== END 2024-01-11 13:55 | disposition home or self-care (01) ==
LOC: LAB 13:56
PROVIDERS: PCP Family Medicine; Visit Provider Family Medicine
DX: E11.65 Type 2 diabetes mellitus with hyperglycemia (principal)
CPT/HCPCS: 36415; 83036